=== PATIENT | male | born 1970 | race Caucasian/White ===

== ENCOUNTER 2023-04-16 11:33 | Emergency (ER) | payer BC ==
[~2023-04-16] VITALS: Ht 180.3 cm; Wt 89.8 kg
[2023-04-16] MEDS ORDERED: LISINOPRIL10 MG PO (12:58)
== END 2023-04-16 16:54 | disposition home or self-care (01) ==
LOC: ER 11:33
DX: R51.9 Headache, unspecified (principal); R00.2 Palpitations